=== PATIENT | female | born 1995 | race Caucasian/White ===

== ENCOUNTER 2016-05-16 23:45 | Emergency (ER) | payer OTHER ==
[2016-05-16] MEDS ORDERED: APRI 28 DAY TA1 EACH PO (23:54)
[2016-05-17 01:02] LABS: BASO % 0.4 % (0-2); EOS % 2.2 % (0-7); EOSINOPHIL ABSOLUTE COUNT 0.2 tho/cmm (0.0-0.7); HCT-HEMATOCRIT 38.3 % (34.0-49.0); HGB-HEMOGLOBIN 13.2 gm/dl (12.0-15.5); IMMATURE GRANULOCYTES ABSOLUTE 0.01 tho/cmm (0-0.03); IMMATURE GRANULOCYTES PERCENT 0.1 % (0-0.3); LYMPH % 22.2 % (20-45); LYMPH ABSOLUTE COUNT 1.8 tho/cmm (0.8-4.5); MCH (MEAN CORPUSCULAR HGB) 30.1 pg (28.0-32.0); MCHC MEAN CORPUSCULAR HGB CONC 34.5 % (32.0-36.0); MCV (MEAN CELL VOLUME) 87.4 fl (82.0-96.0); MEAN PLATELET VOLUME 11.9 cmc (9.4-12.4); MONO % 9.7 % (0-12); MONOCYTE ABSOLUTE COUNT 0.8 tho/cmm (0.0-1.2); NEUTROPHIL ABSOLUTE COUNT 5.2 tho/cmm (1.6-8.0); NEUTROPHIL-AUTOMATED 5.2 tho/cmm (1.6-8.0); NEUTROPHILS % 65.4 % (40-80); PLATELET COUNT 282 tho/cmm (150-450); RED BLOOD COUNT 4.38 mil/cmm (4.00-5.20)
[2016-05-17 01:16] LABS: ANION GAP 12 mmol/L (0-20); BLOOD UREA NITROGEN 14 mg/dl (6-24); CALCIUM 8.5 mg/dl (8.5-10.5); CARBON DIOXIDE-VENOUS 24 mmol/L (22-32); CHLORIDE 110 mmol/l (96-110); GLUCOSE 111 mg/dL (70-110); POTASSIUM 3.9 mmol/L (3.7-5.1); SODIUM 142 mmol/L (135-145); eGFR VALUE FOR BLACK >90 mL/Min
[2016-05-17 01:42] LABS: URINE BILIRUBIN NEGATIVE (NEG); URINE BLOOD MODERATE (NEG); URINE GLUCOSE (UA) NEGATIVE (NEG); URINE KETONE NEGATIVE (NEG); URINE LEUKOCYTE ESTERASE NEGATIVE (NEG); URINE NITRITE NEGATIVE (NEG); URINE PROTEIN SMALL (NEG); URINE SPECIFIC GRAVITY 1.025 (1.003-1.030)
[2016-05-17 01:43] LABS: URINE APPEARANCE CLEAR; URINE COLOR YELLOW
[2016-05-17 01:48] LABS: URINE EPITHELIAL CELLS 0-3 /[HPF] (0-10); URINE MUCUS 1+; URINE WBC 0-3 /[HPF] (0-5)
[2016-05-17 02:16] LABS: PREGNANCY-SERUM NEGATIVE (NEGATIVE)
[2016-05-17] MEDS ORDERED: NORCO 5/3251 TAB PO (03:08)
== END 2016-05-17 03:16 ==
LOC: EDMED 23:45
PROVIDERS: Emergency Medicine
DX: N20.0 Calculus of kidney (principal)
CPT/HCPCS: J1885; J2405; J7030; P9612